=== PATIENT | female | born 1985 | race Caucasian/White ===

== ENCOUNTER 2016-09-15 18:12 | Emergency (ER) | payer BC, OTHER ==
[2016-09-15 18:12] VITALS: BMI 42.8
[2016-09-15 18:31] VITALS: BP 142/92; PULSE 100; RESP 18; TEMP 99.6; O2SAT 100
[2016-09-15] MEDS ORDERED: Sodium Chloride 0.9% 2,000 ML IV STA (18:50)
--- NOTE | 2016-09-15 18:52 | ED PDOC ---
HPI: Abdomen Time Seen by Provider: 09/15/16 18:51 Chief Complaint (Nursing): Abdominal Pain Chief Complaint (Provider): abdominal pain History Per: Patient (31 y/o female here for vomiting/diarrhea since eating [employer] silvia today 8am. Notes 4-5 episodes watery diarrhea. Denies any fevers/ chills. Tried pepto bismal without relief. No h/o abdominal surgeries.) Past Medical History Reviewed: Historical Data, Nursing Documentation, Vital Signs Vital Signs: Last Vital Signs Temp 99.6 F 09/15/16 18:27 Pulse 100 H 09/15/16 18:27 Resp 18 09/15/16 18:27 BP 142/92 H 09/15/16 18:27 Pulse Ox 100 09/15/16 19:05 - Medical History PMH: Anxiety, Depression - Family History Family History: States: No Known Family Hx - Immunization History Hx Tetanus Toxoid Vaccination: No Hx Influenza Vaccination: No Hx Pneumococcal Vaccination: No - Home Medications Home Medications: Ambulatory Orders Medication Instructions Recorded Ibuprofen [Advil] 2 tab PO PRN PRN 06/30/16 Meloxicam [Mobic] 1 tab PO DAILY #20 tab 06/30/16 - Allergies Allergies/Adverse Reactions: Allergies Allergy/AdvReac Type Severity Reaction Status Date / Time No Known Allergies Allergy Verified 06/30/16 09:40 Review of Systems ROS Statement: Except As Marked, All Systems Reviewed And Found Negative Physical Exam - Reviewed Nursing Documentation Reviewed: Yes Vital Signs Reviewed: Yes - Physical Exam Appears: Positive for: Well, Non-toxic, No Acute Distress Head Exam: Positive for: ATRAUMATIC, NORMAL INSPECTION, NORMOCEPHALIC Skin: Positive for: Normal Color, Warm, DRY Eye Exam: Positive for: EOMI, Normal appearance, PERRL ENT: Positive for: Normal ENT Inspection Neck: Positive for: Normal, Painless ROM Cardiovascular/Chest: Positive for: Regular Rate, Rhythm Respiratory: Positive for: CNT, Normal Breath Sounds Gastrointestinal/Abdominal: Positive for: Normal Exam, Bowel Sounds, Soft, Tenderness (epigastric tenderness) Back: Positive for: Normal Inspection Extremity: Positive for: Normal ROM Neurologic/Psych: Positive for: Alert, Oriented - Laboratory Results Result Diagrams: 09/15/16 19:12 09/15/16 19:12 Urine POC: Negative Urine dip results: Negative for: Leukocyte Esterase, Blood, Nitrate, Ketones, Glucose, Bilirubin, Protein (spec grav 1.020) - ECG O2 Sat by Pulse Oximetry: 100 - Progress ED Course And Treament: pepcid 20 mg iv x 1 ose zofran 8 mg iv x 1 dose NS 2 liters wide open in ED ACETAMINOPHEN 975MG X 1 DOSE maalox 30 ml po x 1 dose Disposition - Clinical Impression Clinical Impression: Abdominal pain - Patient ED Disposition Is Patient to be Admitted: Transfer of Care - Disposition Disposition: Transfer of Care Disposition Time: 20:00 Condition: FAIR Additional Instructions: Re-evaluate after 2 liters Patient Signed Over To: Leticia Parsons Handoff Comments: PENDING RE-EVAL
[2016-09-15 19:21] LABS: BASO % 0.3 % (0.0-2.0); EOS # 0.1 K/uL (0.0-0.7); EOS % 0.4 % (0.0-4.0); HEMOGLOBIN 13.6 g/dL (12.0-16.0); LYMPH # 1.4 K/uL (1.0-4.3); LYMPH % 8.8 % (20.0-40.0); MEAN CELL VOLUME 84.5 fl (81.0-99.0); MEAN CORPUSCULAR HEMOGLOBIN 27.6 pg (27.0-31.0); MEAN CORPUSCULAR HGB CONC 32.7 g/dL (33.0-37.0); MEAN PLATELET VOLUME 8.4 fl (7.2-11.7); MONO # 0.9 K/uL (0.0-0.8); MONO % 5.5 % (0.0-10.0); NEUT # 13.9 K/uL (1.8-7.0); PLATELET COUNT 252 K/uL (130-400); RBC 4.92 Mil/uL (3.80-5.20); RED CELL DISTRIBUTION WIDTH 14.6 % (11.5-14.5); WHITE BLOOD COUNT 16.3 K/uL (4.8-10.8)
[2016-09-15 19:32] LABS: ALB/GLOB RATIO 1.4 (1.0-2.1); ALBUMIN 4.4 g/dL (3.5-5.0); ALT/SGPT 50 U/L (9-52); AST/SGOT 28 U/L (14-36); BLOOD UREA NITROGEN 16 mg/dl (7-17); CALCIUM 9.5 mg/dL (8.4-10.2); GFR AFRICAN-AMERICAN > 60; GFR NON-AFRICAN AMERICAN > 60; LIPASE 59 U/L (23-300)
[2016-09-15] MEDS ORDERED: Alum-Mag Hydrox-Simethicone Susp (30 mL) PO ONE (19:52)
[2016-09-15 20:00] LABS: EOSINOPHIL 1 % (0-7); LYMPHOCYTE 8 % (20-50); MONOCYTE 4 % (0-10); NEUTROPHIL 87 % (42-75); TOTAL CELLS COUNTED 100
[2016-09-15 20:01] LABS: PLATELET ESTIMATE NORMAL (NORMAL)
[2016-09-15] MEDS ORDERED: Alum-Mag Hydrox-Simethicone Susp (30 mL) ONE (20:02)
== END 2016-09-15 21:08 | disposition home or self-care (01) ==
LOC: H.ER 18:12
DX: R10.9 Unspecified abdominal pain (principal); R11.10 Vomiting, unspecified; R19.7 Diarrhea, unspecified

== ENCOUNTER 2018-01-22 22:15 | Emergency (ER) | payer OTHER ==
[2018-01-22 22:15] VITALS: BMI 42.8
[2018-01-22 22:23] VITALS: BP 138/88; PULSE 66; RESP 16; TEMP 97.9; O2SAT 99
[2018-01-22] MEDS ORDERED: Tdap Vaccine 0.5 ml Vial (10-64 yrs) IM ONE ×2 (22:44→23:08)
[2018-01-22] MEDS ORDERED: Oxycodone/Acetaminophen 5/325 mg Tab PO ONE (22:44)
[2018-01-22] MEDS ORDERED: Silver Sulfadiazine 1% CREAM (50 gm) TOP STA (22:44)
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
[2018-01-22] MEDS ORDERED: Oxycodone/Acetaminophen 5/325 mg Tab ONE (23:03)
[2018-01-22] MEDS ORDERED: Silver Sulfadiazine 1% CREAM (50 gm) ONE (23:03)
== END 2018-01-23 00:15 | disposition home or self-care (01) ==
LOC: H.ER 22:15
DX: T23.001A Burn of unspecified degree of right hand, unspecified site, initial encounter (principal); X15.0XXA Contact with hot stove (kitchen), initial encounter; Y92.89 Other specified places as the place of occurrence of the external cause

== ENCOUNTER 2018-06-13 09:27 | Emergency (ER) | payer SELFPAY ==
[2018-06-13 09:27] VITALS: BMI 42.8
[2018-06-13] MEDS ORDERED: Oxycodone/Acetaminophen 5/325 mg Tab PO STA (10:11)
[2018-06-13] MEDS ORDERED: Oxycodone/Acetaminophen 5/325 mg Tab ONE (10:31)
--- NOTE | 2018-06-13 10:50 | ED PDOC ---
HPI: Back Time Seen by Provider: 06/13/18 10:07 Chief Complaint (Nursing): Back Pain Chief Complaint (Provider): Back Pain History Per: Patient History/Exam Limitations: no limitations Onset/Duration Of Symptoms: Days (x3), Worse Since Current Symptoms Are (Timing): Still Present Exacerbating Factor(s): Movement Additional Complaint(s): Tanja Saeed is a 32 year old female, with no significant past medical history, who presents to the emergnecy department complaining of a worsening right lower buttock pain that radiates down her leg ongoing for x3 days. Patient states pain is exacerbated with movement. She took Ibuprofen at home with no improvement. Patient reports doing some lifting at work. She denies any trauma, paresthesias, weakness or other medical complaints. PMD: None provided. Past Medical History Reviewed: Historical Data, Nursing Documentation, Vital Signs Vital Signs: Last Vital Signs Temp 98.2 F 06/13/18 09:33 Pulse 77 06/13/18 09:33 Resp 18 06/13/18 09:33 BP 123/80 06/13/18 09:33 Pulse Ox 98 06/13/18 09:45 - Medical History PMH: Anxiety, Depression - Surgical History Surgical History: No Surg Hx - Family History Family History: States: Unknown Family Hx - Social History Current smoker - smoking cessation education provided: No Alcohol: None Drugs: Denies - Immunization History Hx Tetanus Toxoid Vaccination: No Hx Influenza Vaccination: No Hx Pneumococcal Vaccination: No - Home Medications Home Medications: Ambulatory Orders Medication Instructions Recorded Ibuprofen [Advil] 2 tab PO PRN PRN 06/30/16 Meloxicam [Mobic] 1 tab PO DAILY #20 tab 06/30/16 Dicyclomine [Bentyl] 10 mg PO QID PRN #10 cap 09/15/16 Acetaminophen with Codeine 1 tab PO Q6 PRN #10 tab 01/22/18 [Tylenol with Codeine No. 3 300 mg-30 mg] Naproxen [Naprosyn] 500 mg PO Q12 PRN #20 tablet 01/22/18 Silver Sulfadiazine 1% 20 gm 1 applic TOP BID #1 tube 01/22/18 [Silvadene] Cyclobenzaprine [Cyclobenzaprine 10 mg PO TID PRN #15 tab 06/13/18 HCl] Naproxen [Naprosyn] 500 mg PO BID PRN #15 tablet 06/13/18 - Allergies Allergies/Adverse Reactions: Allergies Allergy/AdvReac Type Severity Reaction Status Date / Time No Known Allergies Allergy Verified 06/30/16 09:40 Review of Systems ROS Statement: Except As Marked, All Systems Reviewed And Found Negative Musculoskeletal: Positive for: Leg Pain (right), Other (right buttock pain) Neurological: Negative for: Weakness, Numbness (tingling) Physical Exam - Reviewed Nursing Documentation Reviewed: Yes Vital Signs Reviewed: Yes - Physical Exam Appears: Positive for: No Acute Distress Head Exam: Positive for: ATRAUMATIC, NORMAL INSPECTION, NORMOCEPHALIC Skin: Positive for: Normal Color, Warm, Dry Eye Exam: Positive for: Normal appearance, EOMI, PERRL Neck: Positive for: Normal, Painless ROM, Supple Cardiovascular/Chest: Positive for: Regular Rate, Rhythm. Negative for: Murmur Respiratory: Positive for: Normal Breath Sounds. Negative for: Respiratory Distress Gastrointestinal/Abdominal: Positive for: Normal Exam, Soft. Negative for: Tenderness Back: Positive for: Other (Tenderness to right buttock. + straight leg raise test <30) Extremity: Positive for: Normal ROM (all extremities). Negative for: Tendern ess, Deformity, Swelling Neurological/Psych: Positive for: Awake, Alert, Normal Tone, Oriented. Negative for: Motor/Sensory Deficits - ECG O2 Sat by Pulse Oximetry: 98 (RA) Pulse Ox Interpretation: Normal Medical Decision Making Medical Decision Making: Time: 10:07 Initial Impression: Sciatica Initial Plan: --Urine --Urine dipstick --Lumbar Spine complete [RAD] --Oxycodone 1 tab PO --Toradol 30 mg IM --Reevaluation Accession No. : [id number] Patient Name / ID : FREDDIE CAPPS / [id number] Exam Date : 06/13/2018 10:19:37 ( Approved ) Study Comment : Sex / Age : F / 32Y Creator : Radhika Fernandez MD Dictator : Radhika Fernandez MD Bead Preparer : Garnisher : Radhika Fernandez MD Approver2 : Report Date : 06/13/2018 11:10:38 My Comment : Date of service: 06/13/2018 PROCEDURE: Radiographs of the Lumbar Spine. HISTORY: R lower back pain COMPARISON: No prior. TECHNIQUE: 5 views obtained. FINDINGS: BONES: There is normal alignment of the lumbar vertebral bodies. There is normal lumbar lordosis. There is no acute fracture, spondylolysis or spondylolisthesis. Bone mineralization is normal. DISC SPACES: The disc heights are maintained. OTHER FINDINGS: There are no pathologic soft tissue calcifications. Both sacroiliac joints are normal. IMPRESSION: No acute fracture, spondylolysis or spondylolisthesis. 12:45 -X-ray results showed no abnormalities. Patient reports feeling better and states symptoms have improved. Upon provider reevaluation patient is feeling better, is medically stable, and requires no further treatment in the ED at this time. Patient will be discharged with Rx Naprosyn and Cyclobenzaprine. Counseling was provided and all questions were answered regarding diagnosis and need for follow up with clinic. There is agreement to discharge plan. Return if symptoms persist or worsen. Scribe Attestation: Documented by Washington Chan, acting as a scribe Alexandro Arrington MD Provider Scribe Attestation: All medical record entries made by the Scribe were at my direction and persona nika dictated by me. I have reviewed the chart and agree that the record accurately reflects my personal performance of the history, physical exam, medical decision making, and the department course for this patient. I have also personally directed, reviewed, and agree with the discharge instructions and disposition. Disposition - Clinical Impression Clinical Impression: Low back pain - Disposition Referrals: [facility] [Outside] Disposition: Routine/Home Disposition Time: 12:45 Condition: IMPROVED Prescriptions: Cyclobenzaprine [Cyclobenzaprine HCl] 10 mg PO TID PRN #15 tab PRN Reason: Pain Naproxen [Naprosyn] 500 mg PO BID PRN #15 tablet PRN Reason: Pain, Moderate (4-7) Instructions: Low Back Pain in Adults Forms: [facility] (Tristanian), [facility] ED School/Work Excuse
--- NOTE | 2018-06-13 11:14 | RAD ---
Date of service: 06/13/2018 PROCEDURE: Radiographs of the Lumbar Spine. HISTORY: R lower back pain COMPARISON: No prior. TECHNIQUE: 5 views obtained. FINDINGS: BONES: There is normal alignment of the lumbar vertebral bodies. There is normal lumbar lordosis. There is no acute fracture, spondylolysis or spondylolisthesis. Bone mineralization is normal. DISC SPACES: The disc heights are maintained. OTHER FINDINGS: There are no pathologic soft tissue calcifications. Both sacroiliac joints are normal. IMPRESSION: No acute fracture, spondylolysis or spondylolisthesis.
[2018-06-13 14:37] VITALS: BP 122/67; PULSE 78; RESP 17; TEMP 97.8
[2018-06-16 14:16] VITALS: O2SAT 98
== END 2018-06-13 13:00 | disposition home or self-care (01) ==
LOC: H.ER 09:27
DX: M54.5 Low back pain (principal)
CPT/HCPCS: 72114; 81025; 96372; 99283; J1885

== ENCOUNTER 2018-07-28 18:15 | Emergency (ER) | payer SELFPAY ==
[2018-07-28 18:16] VITALS: BMI 42.8
[2018-07-28 18:22] VITALS: RESP 18
--- NOTE | 2018-07-28 20:27 | ED PDOC ---
Upper Extremity Pain/Injury Time Seen by Provider: 07/28/18 19:09 Chief Complaint (Nursing): Upper Extremity Problem/Injury History Per: Patient History/Exam Limitations: no limitations Onset/Duration Of Symptoms: Days Current Symptoms Are (Timing): Still Present Quality: Sharp Additional Complaint(s): 32 yo healthy F presents to ED for evaluation of left shoulder pain for 2 days. Pt reports she woke up with the pain which has been constant, sharp pains, non radiating, worse with movement. Pt also states the pain is worse every morning, when she wakes up she gets sharp/pinching pains, that improve through out the day. Pt is unable to lift her arm all the way up due to pain. Pt notes she works at [employer] so does heavy lifting/strenuous activities at time and is unsure if she injured it at work. Pt took Ibuprofen yesterday with no relief. Pt denies fever, chills, numbness or tingling, chest pain, difficulty breathing. PMD: Dr. Aragon LMP: 06/24 Past Medical History Reviewed: Historical Data, Nursing Documentation, Vital Signs Vital Signs: Last Vital Signs Temp 98.3 F 07/28/18 18:22 Pulse 93 H 07/28/18 18:22 Resp 18 07/28/18 18:22 BP 128/84 07/28/18 18:22 Pulse Ox 98 07/28/18 18:22 Primary Care Provider: Shaik Aragon - Medical History PMH: Anxiety, Depression - Family History Family History: States: Unknown Family Hx - Immunization History Hx Tetanus Toxoid Vaccination: No Hx Influenza Vaccination: No Hx Pneumococcal Vaccination: No - Home Medications Home Medications: Ambulatory Orders Medication Instructions Recorded Ibuprofen [Advil] 2 tab PO PRN PRN 06/30/16 Meloxicam [Mobic] 1 tab PO DAILY #20 tab 06/30/16 Dicyclomine [Bentyl] 10 mg PO QID PRN #10 cap 09/15/16 Acetaminophen with Codeine 1 tab PO Q6 PRN #10 tab 01/22/18 [Tylenol with Codeine No. 3 300 mg-30 mg] Naproxen [Naprosyn] 500 mg PO Q12 PRN #20 tablet 01/22/18 Silver Sulfadiazine 1% 20 gm 1 applic TOP BID #1 tube 01/22/18 [Silvadene] Cyclobenzaprine [Cyclobenzaprine 10 mg PO TID PRN #15 tab 06/13/18 HCl] Naproxen [Naprosyn] 500 mg PO BID PRN #15 tablet 06/13/18 Cyclobenzaprine [Cyclobenzaprine 10 mg PO TID PRN #12 tab 07/28/18 HCl] Naproxen 500 mg PO BID #20 tab 07/28/18 - Allergies Allergies/Adverse Reactions: Allergies Allergy/AdvReac Type Severity Reaction Status Date / Time No Known Allergies Allergy Verified 06/30/16 09:40 Review of Systems Constitutional: Negative for: Fever, Chills Cardiovascular: Negative for: Chest Pain Musculoskeletal: Positive for: Shoulder Pain. Negative for: Neck Pain, Arm Pain Neurological: Negative for: Weakness, Numbness Physical Exam - Reviewed Nursing Documentation Reviewed: Yes Vital Signs Reviewed: Yes - Physical Exam Comments: GENERAL APPEARANCE: Patient is awake, alert, oriented x 3, in mild obvious discomfort SKIN: Warm, dry; (-) cyanosis. CHEST AND RESPIRATORY: (-) chest wall tenderness. Lungs: (-) rales, (-) rhonchi, (-) wheezes; breath sounds equal bilaterally. HEART AND CARDIOVASCULAR: (-) irregularity; (-) murmur, (-) gallop. EXTREMITIES: pulses + 2, capillary refill <2sec, LUE: (+) point tenderness to a nterior shoulder in bursa area, (+)tenderness to posterior shoulder, (-) swelling, (-) ecchymosis (-) deformity. (+) decrease shoulder flexion and abduction of shoulder due to pain to 90 degrees, (-) distal neurovascular deficit; Elbow, hand and digits: (-) tenderness. NEURO AND PSYCH: Mental status as above. - ECG O2 Sat by Pulse Oximetry: 98 Medical Decision Making Medical Decision Makin:09 initial eval - shoulder pain d/t tendinitis, bursitis, muscle/rotator cuff injury -- Xray shoulder -- Toradol IM -- Flexeril PO (pt is not driving home) -- re eval Xr reviewed by me - no acute fracture or dislocation 20:25 on re eval pt reports feeling improved pain, though it is still there, improved ROM, though causes pain Discussed results, diagnosis, treatment, return precautions and f/u with pt who is understanding, in agreement and stable for dc Disposition - Clinical Impression Clinical Impression: Rotator cuff disorder, Shoulder pain - Patient ED Disposition Is Patient to be Admitted: No Counseled Patient/Family Regarding: Studies Performed, Diagnosis, Need For Followup, Rx Given - Disposition Referrals: [facility] [Outside] Disposition: Routine/Home Disposition Time: 20:35 Condition: IMPROVED Additional Instructions: Thank you for letting us take care of you today. The emergency medical care you received today was directed at your acute symptoms. If you were prescribed any medication, please fill it and take as directed. Do not drive or drink alcohol when taking flexeril. Rest, ice and elevate your arm. It may take several days for your symptoms to resolve. Return to the Emergency Department if your symptoms worsen, do not improve, or if you have any other problems. Please contact your doctor in 2 days for re-evaluation and follow up / or call one of the physicians/clinics you have been referred to that are listed on the Patient Visit Information form that is included in your discharge packet. Bring any paperwork you were given at discharge with you along with any medications you are taking to your follow up visit. Our treatment cannot replace ongoing medical care by a primary care provider (PCP) outside of the emergency department. Prescriptions: Cyclobenzaprine [Cyclobenzaprine HCl] 10 mg PO TID PRN #12 tab PRN Reason: muscle pain Naproxen 500 mg PO BID #20 tab Instructions: Rotator Cuff Injury, Shoulder Tendinopathy (DC), Shoulder Pain (DC) Forms: [facility] ED School/Work Excuse Print Language: [place] - POA Present On Arrival: None
[2018-07-28 22:24] VITALS: BP 115/88; PULSE 80; TEMP 98; O2SAT 99
--- NOTE | 2018-07-29 10:49 | RAD ---
Date of service: 07/28/2018 PROCEDURE: Radiographs of the Left Shoulder HISTORY: Left shoulder Pain. No history of recent/ related trauma provided. COMPARISON: No prior. TECHNIQUE: 3 views obtained. FINDINGS: BONES: Normal. No fracture. JOINTS: Normal. Glenohumeral and acromioclavicular joints preserved. No osteoarthritis. SOFT TISSUES: Normal. OTHER FINDINGS: None. IMPRESSION: Normal radiographs of the left shoulder.
== END 2018-07-28 20:43 | disposition home or self-care (01) ==
LOC: H.ER 18:15
DX: M25.512 Pain in left shoulder (principal); Z86.59 Personal history of other mental and behavioral disorders
CPT/HCPCS: 73030; 81025; 96372; 99283; J1885